=== PATIENT | male | born 1975 | race Caucasian/White ===

== ENCOUNTER 2019-01-02 20:40 | Emergency (ER) | payer OTHER ==
[~2019-01-02] VITALS: Ht 175.3 cm; Wt 106.6 kg
[~2019-01-02 20:40] MED LIST: Aspir 8181 MG; CEPH250A PO; CEPH500 PO; CHOLESTEROL MED; EZET10 PO; FAMO20; FISH OIL 1,2001 EAC3 PO; HYDACE5 PO; LISI20 PO; LISI5 PO; OXYACE5T PO; PANT40 PO; SULTRIDS PO; TRAM50 PO
[2019-01-02 21:46] LABS: Influenza A Negative (NEGATIVE); Influenza B Negative (NEGATIVE)
[2019-01-02 22:23] LABS: BASOPHILS PERCENT AUTO 1 % (0-2); EOSINOPHILS ABSOLUTE AUTO 0.18 K/mm3 (0.00-0.68); EOSINOPHILS PERCENT AUTO 2 % (0-6); Hematocrit 45.6 % (37.0-53.0); Hemoglobin 15.3 g/dL (13.5-17.5); IMMATURE GRAN ABSOLUTE AUTO 0.22 K/mm3 (0.00-0.10); IMMATURE GRAN PERCENT AUTO 2 % (0-1); LYMPHOCYTES ABSOLUTE AUTO 5.05 K/mm3 (0.84-5.20); LYMPHOCYTES PERCENT AUTO 49 % (21-46); MONOCYTES ABSOLUTE AUTO 0.93 K/mm3 (0.16-1.47); MONOCYTES PERCENT AUTO 9 % (4-13); Mean Corpuscular HGB 30.2 pg (26.0-34.0); Mean Corpuscular HGB Conc 33.6 g/dL (31.5-36.5); Mean Corpuscular Volume 90 fL (80-100); Mean Platelet Volume 9.6 fL (9.1-12.4); NEUTROPHILS ABSOLUTE AUTO 3.92 K/mm3 (1.96-9.15); NEUTROPHILS PERCENT AUTO 38 % (41-73); Platelet Count 288 K/mm3 (150-400); RDW Coefficient Variation 12.8 % (11.7-14.2); Red Blood Cell Count 5.06 M/mm3 (4.30-5.90)
[2019-01-02 22:43] LABS: Alanine Aminotransfer (ALT/SGP 137 U/L (12-78); Albumin, Blood 3.5 g/dL (3.4-5.0); Albumin/Globulin Ratio 0.8 (0.8-1.8); Alk Phos 77 U/L (50-136); Anion Gap 9 mmol/L (6-16); Aspartate Aminotrans (AST/SGOT 59 U/L (12-37); Bilirubin, Total 0.2 mg/dL (0.1-1.0); Blood Urea Nitrogen 9 mg/dL (8-24); Bun/Creatinine Ratio 11.7 (12.0-20.0); CO2, Blood 23 mmol/L (21-32); Calcium, Blood 8.5 mg/dL (8.5-10.1); Chloride, Blood 108 mmol/L (98-108); Creatinine, Blood 0.77 mg/dL (0.60-1.20); Globulin, Blood 4.6 g/dL (2.2-4.0); Glomerular Filtration Rate >60 (60-); Glucose, Blood 120 mg/dL (70-99); Potassium, Blood 3.8 mmol/L (3.5-5.5); Sodium, Blood 140 mmol/L (136-145); Total Protein, Blood 8.1 g/dL (6.4-8.2)
[2019-01-03] MEDS ORDERED: Prednisone50 MG PO (00:09)
[2019-01-03] MEDS ORDERED: ALBU90OI INH (00:09)
[2019-01-03] MEDS ORDERED: BENZ100A PO (00:09)
[2019-01-03] MEDS ORDERED: Zithromax250 MG PO (00:09)
== END 2019-01-03 00:30 | disposition home or self-care (01) ==
LOC: ER 20:40
PROVIDERS: Emergency Medicine
DX: J44.1 Chronic obstructive pulmonary disease with (acute) exacerbation (principal); Z88.8 Allergy status to other drugs, medicaments and biological substances; Z79.82 Long term (current) use of aspirin; Z79.899 Other long term (current) drug therapy; I10 Essential (primary) hypertension; E78.5 Hyperlipidemia, unspecified; K21.9 Gastro-esophageal reflux disease without esophagitis; F17.200 Nicotine dependence, unspecified, uncomplicated
CPT/HCPCS: 36415; 71046; 80053; 84484; 85025; 87804; 93005; 93010; 94640; 96374; 96375; 99284-25; A9270-GY; J1100; J1885

== ENCOUNTER 2019-07-19 11:11 | Emergency (ER) | payer OTHER ==
[~2019-07-19] VITALS: Ht 175.3 cm; Wt 106.1 kg
[~2019-07-19 11:11] MED LIST changes: +ALBU90OI INH; +BENZ100A PO; +Prednisone50 MG PO; +Zithromax250 MG PO
== END 2019-07-19 13:22 | disposition home or self-care (01) ==
LOC: ER 11:11
DX: S61.011A Laceration without foreign body of right thumb without damage to nail, initial encounter (principal); I10 Essential (primary) hypertension; K30 Functional dyspepsia; J45.909 Unspecified asthma, uncomplicated; F17.200 Nicotine dependence, unspecified, uncomplicated; Z88.8 Allergy status to other drugs, medicaments and biological substances; Z79.899 Other long term (current) drug therapy; Z79.82 Long term (current) use of aspirin; Z79.52 Long term (current) use of systemic steroids; W26.0XXA Contact with knife, initial encounter
CPT/HCPCS: 12002; 99282-25; L3917

== ENCOUNTER 2019-07-27 14:56 | Emergency (ER) | payer OTHER ==
[~2019-07-27] VITALS: Ht 175.3 cm; Wt 106.1 kg
[2019-07-27] MEDS ORDERED: LOSA25 (15:04)
[2019-07-27] MEDS ORDERED: Cheratussin AC118 ML PO (15:24)
[2019-07-27] MEDS ORDERED: BENZ100A PO (15:24)
[2019-07-27] MEDS ORDERED: IBUP600 PO (15:24)
== END 2019-07-27 15:29 | disposition home or self-care (01) ==
LOC: ER 14:56
DX: J06.9 Acute upper respiratory infection, unspecified (principal); I10 Essential (primary) hypertension; F17.210 Nicotine dependence, cigarettes, uncomplicated; Z88.8 Allergy status to other drugs, medicaments and biological substances; Z79.899 Other long term (current) drug therapy; Z79.82 Long term (current) use of aspirin
CPT/HCPCS: 99282

== ENCOUNTER → 2019-09-25 | Outpatient (CLI) | payer OTHER ==
[~2019-09-25] MED LIST changes: +Cheratussin AC118 ML PO; +IBUP600 PO; +LOSA25
== END | disposition home or self-care (01) ==
LOC: LAB EV 11:53 → LAB SHORT 11:53
DX: L03.90 Cellulitis, unspecified (principal)
CPT/HCPCS: 87070; 87075; 87077; 87147; 87186; 87205

== ENCOUNTER 2023-04-14 17:07 | Emergency (ER) | payer OTHER ==
[~2023-04-14] VITALS: Ht 175.3 cm; Wt 117.9 kg
[~2023-04-14 17:07] MED LIST changes: +Acidophilus1 EAC1 PO; -Aspir 8181 MG; +Aspir 8181 MG PO; +CLON.1 PO; +FISH OIL 1,2001 EAC1 PO; -FISH OIL 1,2001 EAC3 PO; +FOLI1 PO; +FURO40 PO; -LOSA25; +LOSA50 PO; +MELA3 PO; +METO100ER PO; +QUET25 PO; +Vitamin D2000 UNIT PO
[2023-04-14 17:25] VITALS: BP 111/74
[2023-04-14] MEDS ORDERED: Mupirocin22 GM TOP (20:07)
== END 2023-04-14 20:19 | disposition home or self-care (01) ==
LOC: ER 17:07
DX: S80.852A Superficial foreign body, left lower leg, initial encounter (principal); W45.8XXA Other foreign body or object entering through skin, initial encounter; F17.200 Nicotine dependence, unspecified, uncomplicated; Z88.8 Allergy status to other drugs, medicaments and biological substances; Z79.82 Long term (current) use of aspirin; Z79.899 Other long term (current) drug therapy
CPT/HCPCS: 93971; 99283-25

== ENCOUNTER 2024-10-11 11:25 | Emergency (ER) | payer OTHER ==
[~2024-10-11] VITALS: Ht 175.3 cm; Wt 116.6 kg
[~2024-10-11 11:25] MED LIST changes: +Mupirocin22 GM TOP
[2024-10-11 12:55] LABS: BASOPHILS ABSOLUTE AUTO 0.07 K/mm3 (0.00-0.23); BASOPHILS PERCENT AUTO 1 % (0-2); EOSINOPHILS ABSOLUTE AUTO 0.19 K/mm3 (0.00-0.68); EOSINOPHILS PERCENT AUTO 2 % (0-6); Hematocrit 45.4 % (37.0-53.0); Hemoglobin 15.7 g/dL (13.5-17.5); IMMATURE GRAN ABSOLUTE AUTO 0.12 K/mm3 (0.00-0.10); IMMATURE GRAN PERCENT AUTO 1 % (0-1); LYMPHOCYTES ABSOLUTE AUTO 2.91 K/mm3 (0.84-5.20); LYMPHOCYTES PERCENT AUTO 28 % (21-46); MONOCYTES ABSOLUTE AUTO 1.01 K/mm3 (0.16-1.47); MONOCYTES PERCENT AUTO 10 % (4-13); Mean Corpuscular HGB 29.6 pg (26.0-34.0); Mean Corpuscular HGB Conc 34.6 g/dL (31.5-36.5); Mean Corpuscular Volume 86 fL (80-100); Mean Platelet Volume 9.6 fL (9.1-12.4); NEUTROPHILS ABSOLUTE AUTO 6.16 K/mm3 (1.96-9.15); NEUTROPHILS PERCENT AUTO 59 % (41-73); Platelet Count 338 K/mm3 (150-400); RDW Standard Deviation 40.3 fL (35.1-46.3); White Blood Cell Count 10.46 K/mm3 (4.00-11.30)
[2024-10-11 12:58] LABS: CORONAVIRUS COVID-19 AG Negative (NEGATIVE); INFLUENZA A AG Negative (NEGATIVE); INFLUENZA B AG Negative (NEGATIVE)
[2024-10-11 13:22] LABS: Albumin, Blood 2.9 g/dL (3.4-5.0); Albumin/Globulin Ratio 0.6 (0.8-1.8); Bilirubin, Total 0.6 mg/dL (0.1-1.0); Bun/Creatinine Ratio 11.5 (12.0-20.0); Calcium, Blood 9.3 mg/dL (8.5-10.1); Creatinine, Blood 0.7 mg/dL (0.60-1.20); Potassium, Blood 3.8 mmol/L (3.5-5.5); Total Protein, Blood 7.9 g/dL (6.4-8.2)
[2024-10-11] MEDS ORDERED: Albuterol 2.5 MG/3 ML VIAL INH SCH (16:05)
[2024-10-11] MEDS ORDERED: Ipratropium Bromide INH 0.02% 0.5 mg/2.5ML Vial INH SCH (16:05)
[2024-10-11] MEDS ORDERED: MethylPREDNISolone Sod Succ 125 MG Vial IV ONE (16:05)
[2024-10-11] MEDS ORDERED: SYMBICORT 160-4.6 GM INH (16:10)
[2024-10-11] MEDS ORDERED: ALBU90OI INH (16:10)
[2024-10-11] MEDS ORDERED: PRED20 PO (16:10)
[2024-10-11] MEDS ORDERED: DOXY100 PO (16:10)
[2024-10-11 17:38] VITALS: BP 114/74
== END 2024-10-11 17:38 | disposition home or self-care (01) ==
LOC: ER 11:25
PROVIDERS: Student in an Organized Health Care Education/Training Program
DX: J44.1 Chronic obstructive pulmonary disease with (acute) exacerbation (principal); I25.10 Atherosclerotic heart disease of native coronary artery without angina pectoris; I11.0 Hypertensive heart disease with heart failure; I50.22 Chronic systolic (congestive) heart failure; I25.2 Old myocardial infarction; F17.290 Nicotine dependence, other tobacco product, uncomplicated; Z88.8 Allergy status to other drugs, medicaments and biological substances; Z79.82 Long term (current) use of aspirin; Z79.899 Other long term (current) drug therapy; Z95.1 Presence of aortocoronary bypass graft; Z11.52 Encounter for screening for COVID-19
CPT/HCPCS: 71046; 80053; 85025; 87428-QW; 93005; 93010; 94644; 94664; 96374; 99285-25; J2919